=== PATIENT | male | born 2000 | race Caucasian/White ===

== ENCOUNTER → 2020-01-17 | Emergency (ER) | payer OTHER ==
[~2020-01-17] MED LIST: AMOXICILLIN 500 MG CAP As Ordered ONE; AMOXICILLIN 500 MG CAP ONE
== END | disposition home or self-care (01) ==
LOC: M ED 00:21
DX: H72.2X1 Other marginal perforations of tympanic membrane, right ear (principal)

== ENCOUNTER 2020-05-05 00:54 | Inpatient (IN) | payer OTHER ==
[~2020-05-05] VITALS: Ht 185.4 cm; Wt 59.6 kg
[2020-05-05 01:30] LABS: HEMATOCRIT 42.8 % (42.0-52.0); HEMOGLOBIN 14.1 g/dl (13.5-17.5); MEAN CORPUSCULAR HEMOGLOBIN 28.5 pg (27.0-33.0); MEAN CORPUSCULAR HGB CONC 32.9 g/dl (32.0-36.5); MEAN CORPUSCULAR VOLUME 86.6 fl (80.0-96.0); PLATELET COUNT, AUTOMATED 260 10^3/uL (150-450); RED BLOOD COUNT 4.94 10^6/uL (4.30-6.10); WHITE BLOOD COUNT 13.8 10^3/uL (4.0-10.0)
[2020-05-05 01:57] LABS: AMPHETAMINES LEVEL URINE NEGATIVE (NEGATIVE); BARBITURATES URINE NEGATIVE (NEGATIVE); BENZODIAZEPINES URINE NEGATIVE (NEGATIVE); CANNABINOIDS URINE NEGATIVE (NEGATIVE); COCAINE METABOLITE URINE NEGATIVE (NEGATIVE); METHADONE URINE NEGATIVE (NEGATIVE); OPIATES URINE NEGATIVE (NEGATIVE); PHENCYCLIDINE URINE NEGATIVE (NEGATIVE)
[2020-05-05 02:15] LABS: ACETAMINOPHEN LEVEL < 2.0 UG/ML (10.0-30.0); ALBUMIN 3.9 GM/DL (3.2-5.2); ALT/SGPT 20 U/L (12-78); BILIRUBIN,DIRECT < 0.1 MG/DL (0.0-0.2); BILIRUBIN,TOTAL 0.2 MG/DL (0.2-1.0); BLOOD UREA NITROGEN 13 MG/DL (7-18); CARBON DIOXIDE LEVEL 26 MEQ/L (21-32); CHLORIDE LEVEL 107 MEQ/L (98-107); ETHYL ALCOHOL (ETHANOL) 0.014 % (0.000-0.010); GLUCOSE, FASTING 95 MG/DL (70-100); POTASSIUM SERUM 3.3 MEQ/L (3.5-5.1); SALICYLATE LEVEL < 1.7 MG/DL (5.0-30.0); SODIUM LEVEL 142 MEQ/L (136-145); TOTAL PROTEIN 7.6 GM/DL (6.4-8.2)
--- NOTE | 2020-05-05 02:38 | REPVR ---
PROCEDURE INFORMATION: Exam: CT Head Without Contrast Exam date and time: 05/05/2020 2:13 AM Age: 20 years old Clinical indication: Injury or trauma; Fall; Blunt trauma (contusions or hematomas); Additional info: Fall, loc? TECHNIQUE: Imaging protocol: Computed tomography of the head without contrast. Radiation optimization: All CT scans at this facility use at least one of these dose optimization techniques: automated exposure control; mA and/or kV adjustment per patient size (includes targeted exams where dose is matched to clinical indication); or iterative reconstruction. COMPARISON: No relevant prior studies available. FINDINGS: Brain: Normal. No hemorrhage. Unremarkable white matter. No mass effect. Cerebral ventricles: No ventriculomegaly. Bones/joints: Unremarkable. No acute fracture. Paranasal sinuses: Mild fluid throughout the paranasal sinuses. Mastoid air cells: Visualized mastoid air cells are well aerated. Soft tissues: Unremarkable. IMPRESSION: 1. No acute intracranial abnormality. 2. Sinusitis. Electronically signed by: Shahram Cohen On 05/05/2020 02:38:51 AM
--- NOTE | 2020-05-05 02:43 | REPVR ---
PROCEDURE INFORMATION: Exam: CT Cervical Spine Without Contrast Exam date and time: 05/05/2020 2:13 AM Age: 20 years old Clinical indication: Injury or trauma; Fall; Blunt trauma; Additional info: Fall, loc? TECHNIQUE: Imaging protocol: Computed tomography images of the cervical spine without contrast. Radiation optimization: All CT scans at this facility use at least one of these dose optimization techniques: automated exposure control; mA and/or kV adjustment per patient size (includes targeted exams where dose is matched to clinical indication); or iterative reconstruction. COMPARISON: No relevant prior studies available. FINDINGS: Bones/joints: No acute fracture. Normal alignment. Discs/Spinal canal/Neural foramina: No significant disc protrusion. No severe spinal canal stenosis. No significant neural foraminal narrowing. Soft tissues: Unremarkable. Lungs: Lung apices are normal. IMPRESSION: No acute findings. Electronically signed by: Shahram Cohen On 05/05/2020 02:43:13 AM
[2020-05-05] MEDS ORDERED: MELATONIN GUMMIES (05:36)
--- NOTE | 2020-05-05 06:20 | ECGEPIP ---
[facility] - ED Test Date: 2020-05-05 Pat Name: JEANETTE REYNAGA Department: Room: - Gender: Male Shipping Clerk: REJI : 2000 Requested By: MIKAL Huggins Order Number: [id number] Reading MD: Will Menjivar Measurements Intervals [place] Rate: 50 P: 39 MA: 175 QRS: 93 QRSD: 100 T: 54 QT: 466 QTc: 427 Interpretive Statements SINUS BRADYCARDIA WITH SINUS ARRHYTHMIA BORDERLINE RIGHT AXIS DEVIATION INCOMPLETE RIGHT BUNDLE BRANCH BLOCK NO PRIORS FOR COMPARISON Electronically Signed on 05-05-2020 6:20:10 EST by Will Menjivar
[2020-05-06] MEDS ORDERED: IBUPROFEN 400 MG TAB PO PRN (15:00)
[2020-05-06] MEDS ORDERED: MAALOX 30 ML SUSP *UDC PO PRN (15:00)
[2020-05-06] MEDS ORDERED: MOM 30ML SUSPENSION UDC PO PRN (15:00)
[2020-05-06 16:18] VITALS: BP 136/85
[2020-05-06] MEDS: NICOTINE 21MG/24HR 1 EA TRANSDERMAL TD SCH (19:13)
[2020-05-07 06:23] VITALS: BP 123/76
[2020-05-07] MEDS: NICOTINE 21MG/24HR 1 EA TRANSDERMAL TD SCH (09:00)
--- NOTE | 2020-05-07 10:46 | MHHPEPDOC ---
General Legal Status: 9.39 Chief Complaint "I shouldn't be here. History of Present Illness HISTORY OF THE PRESENT ILLNESS: Patient is a 20 -year-old , male, who presents after reportedly jumping off a platform, the patient disputes this, stating that he had climbed up a rope while drinking and had fallen. The patient reportedly had been suicidal and been monitored by friends where he was found on the ground brought in after jumping. He does admit to some anxiety, excessive worry with multiple stressors including a potential legal investigatio n the otherwise denies depression and any other psychiatric symptoms. The majority of the interview spent with the patient perseverate on discharge. He generally reported that he did not want to be here and excess amount time is spent on him wanting us to talk to collateral sources. Psychiatric Review of Systems Anxiety: gen/non-specific anxiety, situational anxiety, panic attacks Past Psychiatric History Previous Psychiatric Diagnosis: denies. Previous Psychiatric Admissions:. Denies. Suicide Attempts:. Denies. Psychiatric Follow-up:. Denies. Psychiatric medications:. Denies. Family Medical/Psychiatric HX Psychiatric Disorders: Yes (Depression) Addiction History alcohol, other (Cannabis) Social History Current Living Situation: lives in [facility]. Education: graduate high school. Employment: infantrymen. Social Support: friends. Legal: legal difficulties with drug investigation. Marital: unmarried. . Mental Status Examination General Appearance: well groomed Build: average Eye Contact: average Activity: average Behavior: resistant Speech: clear Mood: anxious Affect: constricted Thought Process: logical/linear Thought Content (Delusions): none reported Thought Content (Other): none reported Thought Content (Aggressive): none reported Perception (Hallucinations): none reported Perception (Other): none reported Cognition (Impairment of): none reported Cognition(Intelligence Est.): average Oriented: Oriented times three Insight: poor Judgment: Poor Psychosis: Denies A-FIB/CHADSVASC A-FIB History Current/History of A-Fib/PAF?: No Assessment The patient is met with today. It's likely that he had some sort of self-harm behavior whether rehearsal or gesture. It appears quite concerning. He is resistant about staying, but ultimately understands, spoke to his father who appears generally amenable, and will help support the patient in getting treat ment. He has multiple stressors likely provoking an adjustment disorder, however underlying anxiety and depression could be more intense but the interferes curtailed by him being quite perseverative on discharge. Problem List Problems: (1) Adjustment disorder Status: Acute Response to Treatment: Uncontrolled Discussed With: Patient, Family with Pt Consent Problem Text: Will start sertraline 25 mg daily, one dose of Serax anxiety. While the unit Initial Treatment Plan 1. Patient was admitted on a [9.39] status. 2. Complete history was obtained. 3. With patients permission, family will be contacted and database will be expanded. 4. Patients medication regimen will be reviewed and changed accordingly. 5. Patient will be provided with protected environment. 6. Patient will be treated with individual, group, and milieu therapies. 7. Patient will receive supportive psych-education. 8. Discharge planning will commence immediately. 9. Outpatient follow-up treatment will be strongly recommended. 10. The initial treatment plan will focus initially on: * Anxiety * Risk for suicide. ESTIMATED LENGTH OF STAY: 2-5 DAYS. TIME SPENT COUNSELING AND COORDINATING INITIAL CARE: 30 minutes. Vital Signs Vital Signs Date Time Temp Pulse Resp B/P (MAP) Pulse Ox O2 Delivery O2 Flow Rate FiO2 05/07/20 06:23 98.5 61 16 123/76 (92) 98 Room Air Medications Miscellaneous Medications [Melatonin Gummies] , (Reported) TAKES 1 GUMMY IF NEEDED AT BEDTIME Allergies Coded Allergies: No Known Allergies (Unverified , 05/05/20) DO SIERRA DO May 07, 2020 10:46
[2020-05-07] MEDS ORDERED: POTASSIUM CHLORIDE 10 MEQ SR TABLET PO ONE (11:45)
--- NOTE | 2020-05-07 11:48 | HPEPDOC ---
[facility] Medical History & Physical Date of Admission May 07, 2020 Date of Service: May 07, 2020 Attending Physician: NAZANIN FONG MD History and Physical CHIEF COMPLAINT: Suicidal ideation HISTORY OF PRESENT ILLNESS: 20-year-old male with suspected past medical history of anxiety, depression, was brought to [facility] by police for suspected suicidal ideation. Per report, he is told him that he was suicidal. However, he denies this at this time. He has no plans for SI. No homicidal ideation reported. He states that he has been having a lot of stress regarding his girlfriend. Patient was not very forthcoming. However per ED report, it appears that he went for a walk after been drinking climbed to 20 foot med onto a platform and the next thing he knew he was on the ground. He does not remember if he jumped or fell. But again, he denies suicidal ideation at this time. Patient denies any past medical history and he states that he feels well. He has no cough, chest pain, seizures of breath, palpitations, subjective fevers or chills. He denies any dysuria or diarrhea. Denies headache, vision changes or focal weakness On arrival, temperature 97.9. RR 14. Pulse 78. Blood pressure 137/77. Pulse oximetry 98% on room air. Ethyl alcohol was 0.014, otherwise negative tox screen. WBC 13.8, hemoglobin 14.1. Potassium 3.3, sodium 142, creatinine 0.9 CT of imaging of the head and neck showed no acute fractures. PAST MEDICAL HISTORY: Suspected anxiety and depression PAST SURGICAL HISTORY: It with patient. No past surgical history SOCIAL HISTORY: Patient states that he uses nicotine vape. Occasional cigarette use Patient reports occasional alcohol use. Denies history of withdrawals. Denies regular use. Was intoxicated on the evening of admission. Patient has remote history of marijuana use FAMILY HISTORY: Hypertension in father Family history of breast cancer ALLERGIES: Please see below. REVIEW OF SYSTEMS: CONSTITUTIONAL: patient denies fevers, chills HEENT: patient denies blurred vision, loss of vision, headache,. CARDIOVASCULAR: patient denies chest pain, palpitations. RESPIRATORY: patient denies shortness of breath, cough, hemoptysis. GASTROINTESTINAL: patient denies abdominal pain, n/v/d, blood in stool. GENITOURINARY: patient denies dysuria, discharge. SKIN: patient denies rashes. MUSCULOSKELETAL: patient denies joint pain, neck pain. NEUROLOGICAL: patient denies focal weakness, numbness, seizures. PSYCHIATRIC: patient denies SI/HI. ENDOCRINE: patient denies polyuria, heat intolerance, cold intolerance. HEMATOLOGIC/LYMPHATIC: patient denies easy bruising. HOME MEDICATIONS: Please see below. PHYSICAL EXAMINATION: VITAL SIGNS: please see below General: NAD, comfortable HEENT: PERRLA, EOMI, sclerae clear Neck: supple, normal ROM, no JVD Respiratory: lungs CTAB, no wheeze, no rales, no crackles CVS: RRR, normal S1, S2, no murmurs Abdo: soft, no masses, no hepatosplenomegaly, BS+, no rebound tenderness Extremities: no edema, pulses 2+ MSK: no joint deformities, normal ROM Neuro: no focal neuro deficits, moving all 4 extremities, CN2-12 intact. Strength 5/5 in all 4 extremities. No nystagmus. Psych: calm, cooperative, AAO x 3 LABORATORY DATA: See below. IMAGING: CT head without contrast FINDINGS: Brain: Normal. No hemorrhage. Unremarkable white matter. No mass effect. Cerebral ventricles: No ventriculomegaly. Bones/joints: Unremarkable. No acute fracture. Paranasal sinuses: Mild fluid throughout the paranasal sinuses. Mastoid air cells: Visualized mastoid air cells are well aerated. Soft tissues: Unremarkable. IMPRESSION: 1. No acute intracranial abnormality. 2. Sinusitis. CT cervical spine without contrast FINDINGS: Bones/joints: No acute fracture. Normal alignment. Discs/Spinal canal/Neural foramina: No significant disc protrusion. No severe spinal canal stenosis. No significant neural foraminal narrowing. Soft tissues: Unremarkable. Lungs: Lung apices are normal. IMPRESSION: No acute findings. MICROBIOLOGY: Please see below. ASSESSMENT: 20-year-old male with suspected history of anxiety, depression, admitted for several ideation. Status post fall from a 20 foot platform. Patient denies active suicidal ideation this time. CT of the head and neck were negative in the ED. PLAN: #Suicidal ideation: Per psychiatry. #Leukocytosis: WBC 13.8. Patient denies subjective fevers or chills, chest pain, cough, dysuria or diarrhea, nasal congestion. Will repeat CBC in the morning. #CT head showing sinusitis: Asymptomatic. Repeat CBC in am. #Hypokalemia: K 3.3. Give 40 meq KCL PO. Repeat BMP in am. #Smoker: Agree with nicotine patch. Smoking cessation counseling. DVT prophylaxis: Encourage ambulation Thank you for the consult, please reconsult as needed. Vital Signs Vital Signs Date Time Temp Pulse Resp B/P (MAP) Pulse Ox O2 Delivery O2 Flow Rate FiO2 05/07/20 06:23 98.5 61 16 123/76 (92) 98 Room Air Home Medications Miscellaneous Medications [Melatonin Gummies] TAKES 1 GUMMY IF NEEDED AT BEDTIME Allergies Coded Allergies: No Known Allergies (Unverified , 05/05/20) A-FIB/CHADSVASC A-FIB History Current/History of A-Fib/PAF?: No Current PO Anticoag Therapy: No NAZANIN FONG MD May 07, 2020 11:48
[2020-05-07] MEDS ORDERED: SERTRALINE HCL 25 MG TABLET PO ONE (13:15)
[2020-05-07] MEDS ORDERED: OXAZEPAM 10 MG CAP PO ONE (13:45)
[2020-05-07 16:00] VITALS: BP 131/88
[2020-05-07] MEDS: traZODone 50 MG TAB PO PRN (21:01)
[2020-05-08 06:48] VITALS: BP 121/66
[2020-05-08 07:48] LABS: BASO % 0.6 % (0.0-1.0); EOS # 0.3 10^3/uL (0.0-0.5); HEMATOCRIT 43.2 % (42.0-52.0); LYMPH # 2.8 10^3/uL (1.5-5.0); LYMPH % 38.5 % (24.0-44.0); MEAN CORPUSCULAR HEMOGLOBIN 28.5 pg (27.0-33.0); MEAN CORPUSCULAR HGB CONC 32.4 g/dl (32.0-36.5); MEAN CORPUSCULAR VOLUME 87.8 fl (80.0-96.0); MONO # 0.6 10^3/uL (0.0-0.8); MONO % 8.9 % (0.0-5.0); NEUTROPHILS # 3.4 10^3/uL (1.5-8.5); NEUTROPHILS % 47.4 % (36.0-66.0); PLATELET COUNT, AUTOMATED 273 10^3/uL (150-450); RED BLOOD COUNT 4.92 10^6/uL (4.30-6.10); WHITE BLOOD COUNT 7.2 10^3/uL (4.0-10.0)
[2020-05-08 08:00] LABS: BLOOD UREA NITROGEN 16 MG/DL (7-18); CALCIUM LEVEL 9.5 MG/DL (8.5-10.1); CARBON DIOXIDE LEVEL 29 MEQ/L (21-32); CHLORIDE LEVEL 104 MEQ/L (98-107); CREATININE FOR GFR 0.97 MG/DL (0.70-1.30); GLUCOSE, FASTING 91 MG/DL (70-100); POTASSIUM SERUM 4.6 MEQ/L (3.5-5.1); SODIUM LEVEL 139 MEQ/L (136-145)
[2020-05-08] MEDS: NICOTINE 21MG/24HR 1 EA TRANSDERMAL TD SCH (09:00)
[2020-05-08] MEDS: SERTRALINE HCL 25 MG TABLET PO SCH (09:52)
--- NOTE | 2020-05-08 12:37 | MHIPNPDOC ---
[facility] Progress Note Progress Note DATE OF SERVICE: 05/08/20 HISTORY: the patient is met with today, he reports that he is doing somewhat better and that the medications helping him being more social and engage in the unit. He has no complaints and reports that he's interested in if he can face time his family in [place]. Otherwise he is been engaged without any major problems and is doing well VITAL SIGNS: See below. NEW TEST RESULTS: N/A. CURRENT MEDICATIONS: See below. MENTAL STATUS EXAMINATION: General: Well dressed with good hygiene Speech: Spontaneous and fluid Thought processes: Linear and logical Thought content: Future orientated Abstract reasoning, and computation: Intact Description of associations: Intact Description of abnormal or psychotic thoughts:Denies any suicidal or homicidal ideation. Denies any auditory or visual hallucinations. Does not appear to be responding to internal stimuli. Does not appear to be endorsing any bizarre or paranoid ideation. Judgment: fair Insight: fair Orientation: Alert and orientated 3 Recent and remote memory: Intact Attention span and concentration: Intact Fund of knowledge: Adequate Mood: "okay" Affect: Euthymic with a full range DIAGNOSES: 1. Unspecified anxiety disorder ASSESSMENT: appears to be making progress, hopeful discharge on Tuesday MANAGEMENT PLAN: continue Zoloft 25 mg daily. TIME SPENT: 15 minutes. Vital Signs Vital Signs Date Time Temp Pulse Resp B/P (MAP) Pulse Ox O2 Delivery O2 Flow Rate FiO2 05/08/20 06:48 98.4 53 16 121/66 (84) 97 Room Air Laboratory Data 24H Labs Laboratory Tests 2 05/08/20 07:06: Immature Granulocyte % (Auto) 0.6, Neutrophils (%) (Auto) 47.4, Lymphocytes (%) (Auto) 38.5, Monocytes (%) (Auto) 8.9H, Eosinophils (%) (Auto) 4.0H, Basophils (%) (Auto) 0.6, Neutrophils # (Auto) 3.4, Lymphocytes # (Auto) 2.8, Monocytes # (Auto) 0.6, Eosinophils # (Auto) 0.3, Basophils # (Auto) 0.0, Nucleated Red Blood Cells % (auto) 0.0, Anion Gap 6L, Calcium Level 9.5 CBC/BMP Laboratory Tests 05/08/20 07:06 Current Medications Current Medications Medications (Trade) Dose Ordered Sig/Madisyn Route PRN Reason Start Time Stop Time Status Last Admin Dose Admin Al Hydrox/Mg Hydrox/Simethicone (Mylanta) 30 ml Q4HP PRN PO HEARTBURN/INDIGESTION 05/06/20 15:00 Home Med (Med Rec Complete!) ASDIRECTED XX 05/05/20 05:45 05/05/20 05:38 DC Ibuprofen (Advil) 400 mg Q6HP PRN PO PAIN 05/06/20 15:00 Magnesium Hydroxide (Milk Of Magnesia) 30 ml DAILYPRN PRN PO CONSTIPATION 05/06/20 15:00 Nicotine (Nicoderm Cq 21mg) 1 patch DAILY TD 05/06/20 18:30 05/06/20 19:13 Sertraline HCl (Zoloft) 25 mg DAILY PO 05/08/20 09:00 05/08/20 09:52 Trazodone HCl (Desyrel) 50 mg QHSP PRN PO INSOMNIA 05/06/20 15:00 05/07/20 21:01 Allergies Coded Allergies: No Known Allergies (Unverified , 05/05/20) DO SIERRA DO May 08, 2020 12:37
[2020-05-08 17:41] VITALS: BP 132/91
[2020-05-08] MEDS: traZODone 50 MG TAB PO PRN (21:00)
[2020-05-09 06:50] VITALS: BP 131/65
--- NOTE | 2020-05-09 09:53 | MHIPNPDOC ---
[facility] Progress Note Progress Note DATE OF SERVICE: 05/09/20 HISTORY: The patient is met with today, he reports he is doing well and feels like he is getting most of his treatment. Staff report he is engaged, gregarious and generally without any issue. He reports the Zoloft is helpful without any side effects today. VITAL SIGNS: See below. NEW TEST RESULTS: N/A. CURRENT MEDICATIONS: See below. MENTAL STATUS EXAMINATION: General: Well dressed with good hygiene Speech: Spontaneous and fluid Thought processes: Linear and logical Thought content: Future orientated Abstract reasoning, and computation: Intact Description of associations: Intact Description of abnormal or psychotic thoughts:Denies any suicidal or homicidal i deation. Denies any auditory or visual hallucinations. Does not appear to be responding to internal stimuli. Does not appear to be endorsing any bizarre or paranoid ideation. Judgment: fair Insight: fair Orientation: Alert and orientated 3 Recent and remote memory: Intact Attention span and concentration: Intact Fund of knowledge: Adequate Mood: "okay" Affect: Euthymic with a full range DIAGNOSES: 1. Unspecified anxiety disorder ASSESSMENT: appears to be making progress, hopeful discharge on Tuesday MANAGEMENT PLAN: continue Zoloft 25 mg daily. TIME SPENT: 15 minutes. Vital Signs Vital Signs Date Time Temp Pulse Resp B/P (MAP) Pulse Ox O2 Delivery O2 Flow Rate FiO2 05/09/20 06:50 98.2 58 16 131/65 (87) 98 Room Air Current Medications Current Medications Medications (Trade) Dose Ordered Sig/Madisyn Route PRN Reason Start Time Stop Time Status Last Admin Dose Admin Al Hydrox/Mg Hydrox/Simethicone (Mylanta) 30 ml Q4HP PRN PO HEARTBURN/INDIGESTION 05/06/20 15:00 Home Med (Med Rec Complete!) ASDIRECTED XX 05/05/20 05:45 05/05/20 05:38 DC Ibuprofen (Advil) 400 mg Q6HP PRN PO PAIN 05/06/20 15:00 Magnesium Hydroxide (Milk Of Magnesia) 30 ml DAILYPRN PRN PO CONSTIPATION 05/06/20 15:00 Nicotine (Nicoderm Cq 21mg) 1 patch DAILY TD 05/06/20 18:30 05/06/20 19:13 Sertraline HCl (Zoloft) 25 mg DAILY PO 05/08/20 09:00 05/08/20 09:52 Trazodone HCl (Desyrel) 50 mg QHSP PRN PO INSOMNIA 05/06/20 15:00 05/08/20 21:00 Allergies Coded Allergies: No Known Allergies (Unverified , 05/05/20) DO SIERRA DO May 09, 2020 09:53
[2020-05-09] MEDS: SERTRALINE HCL 25 MG TABLET PO SCH (10:17)
[2020-05-09] MEDS: NICOTINE 21MG/24HR 1 EA TRANSDERMAL TD SCH (10:17)
[2020-05-09 17:40] VITALS: BP 141/79
[2020-05-09] MEDS: traZODone 50 MG TAB PO PRN (21:15)
[2020-05-10 06:44] VITALS: BP 143/65
[2020-05-10] MEDS: NICOTINE 21MG/24HR 1 EA TRANSDERMAL TD SCH (09:00)
[2020-05-10] MEDS: SERTRALINE HCL 25 MG TABLET PO SCH (09:00)
--- NOTE | 2020-05-10 12:25 | MHIPNPDOC ---
[facility] Progress Note Progress Note DATE OF SERVICE: 05/10/20 HISTORY: The patient's met with today, reports he is doing well feeling much improved on the medication. He reports tomorrow he wants with his surgeon signed a release with discuss his treatment and discharge plans, otherwise discussing with him reported that [facility]. No other issues is doing very well. VITAL SIGNS: See below. NEW TEST RESULTS: N/A. CURRENT MEDICATIONS: See below. MENTAL STATUS EXAMINATION: General: Well dressed with good hygiene Speech: Spontaneous and fluid Thought processes: Linear and logical Thought content: Future orientated Abstract reasoning, and computation: Intact Description of associations: Intact Description of abnormal or psychotic thoughts:Denies any suicidal or homicidal ideation. Denies any auditory or visual hallucinations. Does not appear to be responding to internal stimuli. Does not appear to be endorsing any bizarre or paranoid ideation. Judgment: fair Insight: fair Orientation: Alert and orientated 3 Recent and remote memory: Intact Attention span and concentration: Intact Fund of knowledge: Adequate Mood: "okay" Affect: Euthymic with a full range DIAGNOSES: 1. Unspecified anxiety disorder ASSESSMENT: appears to be making progress, hopeful discharge on Tuesday MANAGEMENT PLAN: continue Zoloft 25 mg daily. TIME SPENT: 15 minutes. Vital Signs Vital Signs Date Time Temp Pulse Resp B/P (MAP) Pulse Ox O2 Delivery O2 Flow Rate FiO2 05/10/20 06:44 98.4 55 12 143/65 (91) 98 Room Air Current Medications Current Medications Medications (Trade) Dose Ordered Sig/Madisyn Route PRN Reason Start Time Stop Time Status Last Admin Dose Admin Al Hydrox/Mg Hydrox/Simethicone (Mylanta) 30 ml Q4HP PRN PO HEARTBURN/INDIGESTION 05/06/20 15:00 Home Med (Med Rec Complete!) ASDIRECTED XX 05/05/20 05:45 05/05/20 05:38 DC Ibuprofen (Advil) 400 mg Q6HP PRN PO PAIN 05/06/20 15:00 Magnesium Hydroxide (Milk Of Magnesia) 30 ml DAILYPRN PRN PO CONSTIPATION 05/06/20 15:00 Nicotine (Nicoderm Cq 21mg) 1 patch DAILY TD 05/06/20 18:30 05/10/20 09:00 Sertraline HCl (Zoloft) 25 mg DAILY PO 05/08/20 09:00 05/10/20 09:00 Trazodone HCl (Desyrel) 50 mg QHSP PRN PO INSOMNIA 05/06/20 15:00 05/09/20 21:15 Allergies Coded Allergies: No Known Allergies (Unverified , 05/05/20) DO SIERRA DO May 10, 2020 12:25
[2020-05-10 16:11] VITALS: BP 131/72
[2020-05-10] MEDS: traZODone 50 MG TAB PO PRN (20:23)
[2020-05-11 05:59] VITALS: BP 140/77
[2020-05-11] MEDS: NICOTINE 21MG/24HR 1 EA TRANSDERMAL TD SCH (09:28)
[2020-05-11] MEDS: SERTRALINE HCL 25 MG TABLET PO SCH (09:28)
--- NOTE | 2020-05-11 12:27 | MHIPNPDOC ---
[facility] Progress Note Progress Note DATE OF SERVICE: 05/11/20 HISTORY: the patient is met with, he reports that he is doing well and feeling much improved. He feels like he is gotten much from the treatment and is quite please. His father did call later in the day reported that of a family issue, after discussion with his father, it's decided that when he sees his father once he is given his leave time that his father will broach this topic with him sensitively VITAL SIGNS: See below. NEW TEST RESULTS: N/A. CURRENT MEDICATIONS: See below. MENTAL STATUS EXAMINATION: General: Well dressed with good hygiene Speech: Spontaneous and fluid Thought processes: Linear and logical Thought content: Future orientated Abstract reasoning, and computation: Intact Description of associations: Intact Description of abnormal or psychotic thoughts:Denies any suicidal or homicidal ideation. Denies any auditory or visual hallucinations. Does not appear to be responding to internal stimuli. Does not appear to be endorsing any bizarre or paranoid ideation. Judgment: fair Insight: fair Orientation: Alert and orientated 3 Recent and remote memory: Intact Attention span and concentration: Intact Fund of knowledge: Adequate Mood: "okay" Affect: Euthymic with a full range DIAGNOSES: 1. Unspecified anxiety disorder ASSESSMENT: has done quite well, discussed with patient about stress management strategies and taking a proactive approach in terms of his legal problems in order to help mitigate his stress, as well as to engage those that are supportive of him MANAGEMENT PLAN: continue Zoloft 25 mg daily. TIME SPENT: 15 minutes. Vital Signs Vital Signs Date Time Temp Pulse Resp B/P (MAP) Pulse Ox O2 Delivery O2 Flow Rate FiO2 05/11/20 05:59 97.5 64 16 140/77 (98) 05/10/20 16:11 100 Room Air Current Medications Current Medications Medications (Trade) Dose Ordered Sig/Madisyn Route PRN Reason Start Time Stop Time Status Last Admin Dose Admin Al Hydrox/Mg Hydrox/Simethicone (Mylanta) 30 ml Q4HP PRN PO HEARTBURN/INDIGESTION 05/06/20 15:00 Home Med (Med Rec Complete!) ASDIRECTED XX 05/05/20 05:45 05/05/20 05:38 DC Ibuprofen (Advil) 400 mg Q6HP PRN PO PAIN 05/06/20 15:00 Magnesium Hydroxide (Milk Of Magnesia) 30 ml DAILYPRN PRN PO CONSTIPATION 05/06/20 15:00 Nicotine (Nicoderm Cq 21mg) 1 patch DAILY TD 05/06/20 18:30 05/11/20 09:28 Sertraline HCl (Zoloft) 25 mg DAILY PO 05/08/20 09:00 05/11/20 09:28 Trazodone HCl (Desyrel) 50 mg QHSP PRN PO INSOMNIA 05/06/20 15:00 05/10/20 20:23 Allergies Coded Allergies: No Known Allergies (Unverified , 05/05/20) DO SIERRA DO May 11, 2020 12:27
[2020-05-11 16:09] VITALS: BP 125/70
[2020-05-11] MEDS: traZODone 50 MG TAB PO PRN (21:14)
[2020-05-12 06:25] VITALS: BP 142/65
[2020-05-12] MEDS: NICOTINE 21MG/24HR 1 EA TRANSDERMAL TD SCH (09:00)
[2020-05-12] MEDS: SERTRALINE HCL 25 MG TABLET PO SCH (09:48)
--- NOTE | 2020-05-12 10:31 | MHDSPDOC ---
[facility] Discharge Summary Discharge Summary DATE OF ADMISSION: May 06, 2020 at 14:48 DATE OF DISCHARGE: May 12, 2020 at 12:06 DISCHARGE DIAGNOSES: Unspecified anxiety disorder CONSULTANTS INVOLVED:[ None (basic hospitalist screening)] REASON FOR ADMISSION & TREATMENT AND PROGRESS ON THE UNIT : The patient was admitted to the inpatient mental health unit with concerns of a potential suicide attempt by jumping off a platform. He had been quite intoxicated at the time, but his friends had reported concerns about his behavior as he had been under multiple stressors including recent investigation involving drug use. The patient was initially upset about being admitted and having to stay over the weekend, however he was started on Zoloft 25 mg daily and made impressive progress, he became social engaged went to groups and quickly adapted to the unit. 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 Prior to his discharge his father had reported that there was a family loss, discussed with the father at length, of which it was usually decided that given the patient's excellent progress that when he sees his family which was reportedly plan to be after he left the unit for 1 to 2 days of leave that this would be the more sensitive time to discuss the family loss, of which the father agreed. DISCHARGE ASSESSMENT[improved] Legal status considerations: The patient at the time of discharge did not meet criteria for involuntary admission/extension due to having a [normal] mental status exam, [fair] insight into the situation, They are engaged in the discharge process, as well as being friendly and amenable in behavioral control and havent been engaging in any observed concerning behavior or ideation recently. They decline voluntary extension/admission at this time and must be discharged in good pat, as Im unable to make a case for holding the patient against their will. They may have historical risk factors of admissions and other interactions with psychiatry however, those are not modifiable from a clinical perspective. The patient will need to be discharged in good pat. MENTAL STATUS EXAMINATION ON DISCHARGE: [General: Well dressed with good hygiene Speech: Spontaneous and fluid Thought processes: Linear and logical Thought content: Future orientated Abstract reasoning, and computation: Intact Description of associations: Intact Description of abnormal or psychotic thoughts:Denies any suicidal or homicidal ideation. Denies any auditory or visual hallucinations. Does not appear to be responding to internal stimuli. Does not appear to be endorsing any bizarre or paranoid ideation. Judgment: fair Insight: fair Orientation: Alert and orientated 3 Recent and remote memory: Intact Attention span and concentration: Intact Fund of knowledge: Adequate Mood: "okay" Affect: Euthymic with a full range] PLAN/FOLLOWUP ARRANGEMENTS: Follow up appointments made (PCP and MH in 5 days of D/C date) and safety plan completed. Safety Planning aspects completed prior to discharge [Medication supplies limited to 7 days with 4 refills to prevent accumulation to OD] [Family contact completed, educated on safe practices, instructed on removal and mitigation of dangerous means] [RN reviewed crisis hotline information and other aspects to empower patient to access care in interim before next appointment.] The amount of time spent in the coordination of care for this patient was approximately 30 minutes. Vital Signs/I&Os Vital Signs Date Time Temp Pulse Resp B/P (MAP) Pulse Ox O2 Delivery O2 Flow Rate FiO2 05/12/20 06:25 97.3 57 18 142/65 (90) 05/11/20 16:09 97 Room Air Medications Scheduled Nicotine (Nicotine Patch) 21 Mg Patch.td24, 1 PATCH TD DAILY for tobacco for 30 Days, #30 Sertraline HCl (Sertraline HCl) 25 Mg Tablet, 25 MG PO DAILY for mood for 7 Days, #7 Miscellaneous Medications [Melatonin Gummies] , (Reported) TAKES 1 GUMMY IF NEEDED AT BEDTIME Allergies Coded Allergies: No Known Allergies (Unverified , 05/05/20) DO SIERRA DO May 12, 2020 10:31
[2020-05-12] MEDS ORDERED: SERT25TA21 PO (10:40)
[2020-05-12] MEDS ORDERED: NICO21PAT TD (10:40)
== END 2020-05-12 12:06 | disposition home or self-care (01) | DRG 880 ==
LOC: M ED 00:54 → M ED INP 05-06 14:48 → M PSY 05-06 16:10
PROVIDERS: ADMIT Psychiatry & Neurology Addiction Medicine; ATTEND Psychiatry & Neurology Addiction Medicine
DX: F41.9 Anxiety disorder, unspecified (principal); R45.851 Suicidal ideations; J32.9 Chronic sinusitis, unspecified

== ENCOUNTER 2021-02-03 23:55 | Emergency (ER) | payer OTHER ==
[~2021-02-03] VITALS: Ht 185.4 cm; Wt 60.9 kg
[2021-02-03 23:55] VITALS: BP 129/83
[~2021-02-03 23:55] MED LIST changes: -AMOXICILLIN 500 MG CAP As Ordered ONE; -AMOXICILLIN 500 MG CAP ONE; +MELATONIN GUMMIES; +NICO21PAT TD; +SERT25TA21 PO
== END 2021-02-04 03:19 | disposition left against medical advice (07) ==
LOC: M ED 23:55
DX: Z53.29 Procedure and treatment not carried out because of patient's decision for other reasons (principal)